=== PATIENT | male | born 1950 | race Caucasian/White ===

== ENCOUNTER 2022-12-20 07:57 | Day surgery (SDC) | payer OTHER ==
[2022-12-18 14:54] VITALS: BMI 29.0
[2022-12-20 09:19] VITALS: RESP 16; TEMP 98
[2022-12-20 09:23] VITALS: BP 110/66; PULSE 72
== END 2022-12-20 09:41 | disposition home or self-care (01) ==
LOC: FASU-ENDO 07:57
PROVIDERS: ATTEND Internal Medicine Gastroenterology
PROC: 0DBN8ZX Excision of Sigmoid Colon, Via Natural or Artificial Opening Endoscopic, Diagnostic (ICD-10-PCS; principal; 2022-12-20 08:44)
DX: Z12.11 Encounter for screening for malignant neoplasm of colon (principal); D12.5 Benign neoplasm of sigmoid colon; K64.1 Second degree hemorrhoids; Z86.010 Personal history of colon polyps; Z83.71 Family history of colonic polyps
CPT/HCPCS: 82962; 88305-TC